=== PATIENT | male | born 1975 | race Caucasian/White ===

== ENCOUNTER 2022-01-01 11:01 | Emergency (ER) | payer OTHER ==
[2022-01-01 11:27] VITALS: BP 121/73; PULSE 63; TEMP 98.3; BMI 31.4
[2022-01-01] MEDS ORDERED: KETOROLAC TROMETHAMINE 30 MG/1 ML VIAL IM ONE (11:52)
[2022-01-01] MEDS ORDERED: KETOROLAC TROMETHAMINE 30 MG/1 ML VIAL ONE (11:56)
== END 2022-01-01 11:59 | disposition home or self-care (01) ==
LOC: JERFT 11:01
PROC: 3E0233Z Introduction of Anti-inflammatory into Muscle, Percutaneous Approach (ICD-10-PCS; principal; 2022-01-01)
DX: M54.50 Low back pain, unspecified (principal)
CPT/HCPCS: 99284-25